=== PATIENT | female | born 1990 | race Caucasian/White ===

== ENCOUNTER 2019-04-17 13:18 | Emergency (ER) | payer MEDICAID, SELFPAY ==
[2019-04-17 13:28] VITALS: BP 145/85; PULSE 110; RESP 18; TEMP 36.9
--- NOTE | 2019-04-17 13:34 | ED.GENADUL_ITS ---
Discharge Plan Disposition Patient Disposition: HOME Condition: Good Discharge Details Chief Complaint: EarProblem Clinical Impression: Strep throat, Other otitis externa, right ear Primary Care Provider: Louis Nichols ED Provider: Bc Perez Home Meds and New Rx's Prescriptions: New Ciprodex 0.3-0.1 % drops,suspension 4 drp OT BID 7 Days Qty: 7.5 RF: 0 azithromycin 500 mg tablet 500 mg PO DAILY 5 Days Qty: 5 RF: 0 No Action albuterol sulfate 90 mcg/actuation Hfa Aerosol Inhaler 2 puff INHALATION Q6H PRNRF: 0 Discharge Instructions Instructions: Otitis Externa (ED), Upper Respiratory Infection (ED) Additional Instructions: You have clinical strep throat as well as otitis externa which is an infection of the ear canal. Please take medication as directed. You can also take 1000 mg of Tylenol every 6 hours and 800 mg of ibuprofen every 6 hours as needed for pain or fever. If you notice any worsening of your symptoms, or any new symptoms such as vomiting, diarrhea, fever, chills, shortness of breath, chest pain, numbness, weakness, or fainting , please return immediately to the emergency department for reevaluation. Please follow up with your primary care provider as soon as possible for reassessment and reevaluation. As always, it was a pleasure participating in your medical care today. Stand Alone Forms: Work Release Referrals: Louis Nichols [Primary Care Provider] - Discharge Data Discharge Date/Time-TO BE ENTERED AT DEPARTURE: 04/17/19 13:45 Medical Decision Making This is a 28-year-old female who presents with sore throat and right ear pain. Physical exam demonstrates notable tonsillar exudates, no splenic tenderness or enlargement, signs and symptoms and consistent with mono. Notable concern for strep throat especially with her tender cervical lymphadenopathy. Additionally her right ear demonstrates otitis externa. She does get her ears wet in the shower, and this may be the cause. No evidence of otitis media. Signs and symptoms are concerning with the tonsillar exudates. We will give antibiotic here for strep throat, she is allergic to penicillins and amoxicillin, and so we will give azithromycin, 500 mg daily for 5 days. We will give a prescription for Cipro for her otitis externa. I have extensively reviewed the treatment plan and discharge instructions with the patient. I have addressed all patient concerns at this time. The patient was made aware of what symptoms to monitor for that would warrant a return to the emergency department. Discussed the plan with the patient, they demonstrate verbal understanding and agreement with our assessment and plan at this time. HPI General Date/Time Provider Initiated Documentation: 04/17/19 13:26 . HPI Narrative: This is a 28-year-old female with no past medical history who presents today with complaint of sore throat and right ear pain. Symptoms have been pres ent for the last 24 to 48 hours. She denies fever, chills, or posterior neck pain or headache. She does admit to mild anterior neck pain. She denies cough, shortness of breath, vomiting, diarrhea, IV or illicit drug use, or other sick contacts. She does currently work at [employer]. No other complaints at this time. No other modifying factors. Related Data Home Medications Medication Instructions Recorded Confirmed albuterol sulfate 2 puff INHALATION Q6H PRN 04/17/19 04/17/19 azithromycin 500 mg PO DAILY 5 Days #5 tab 04/17/19 ciprofloxacin-dexamethasone 4 drp OT BID 7 Days #7.5 ml 04/17/19 [Ciprodex] Previous Rx's Medication Instructions Recorded azithromycin 500 mg PO DAILY 5 Days #5 tab 04/17/19 ciprofloxacin-dexamethasone 4 drp OT BID 7 Days #7.5 ml 04/17/19 [Ciprodex] Allergies Allergy/AdvReac Type Severity Reaction Status Date / Time acetaminophen [From Percocet] Allergy Mild Hives Unverified 04/17/19 13:34 amoxicillin Allergy Mild Hives Unverified 04/17/19 13:34 oxycodone [From Percocet] Allergy Mild Hives Unverified 04/17/19 13:34 Penicillins Allergy Mild Hives Unverified 04/17/19 13:34 General Stated Complaint: EarProblem ARI: 5 Review of Systems Review of Systems All systems reviewed & are unremarkable except as noted in HPI and below PFSH Social History Alcohol Intake: never Substance use type: does not use Do you feel safe at home: Yes Do you feel safe in your relationship?: Yes Exam Narrative Exam Narrative: 1.Const: Well-nourished, Well-developed, appearing stated age 2.Eyes: PERRL, no conjunctival injection, and symmetrical lids. 3.ENT: Enlarged tonsils bilaterally, tonsillar exudates noted. Tender cervical lymphadenopathy. No evidence of a retropharyngeal or peritonsillar abscess. Patient demonstrates good movement of cervical neck. There is no nuchal rigidity, no nuchal tenderness. Patient is able to flex the neck without any difficulty or significant pain. Negative Kernig's and Brudzinski sign. The patient's left ear is normal, right ear demonstrates mild otitis externa. No evidence of otitis media. 4.CVS: +S1/S2, No murmurs or gallops. Peripheral pulses 2+ and equal in all extremities. Brisk capillary refill in all extremities. 5.RESP: Unlabored respiratory effort. Clear to auscultation bilaterally. No wheezes rales or rhonchi 6.GI: Soft, Nontender/Nondistended, No hepatosplenomegaly. No guarding or rebound. 7.MSK: Normocephalic/Atraumatic, Extremities w/o deformity or ttp No cyanosis or clubbing, Normal movement of all extremities 8.Skin: Warm, Dry. No rashes or lesions. 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 Sensation grossly intact, no focal neurologic deficits. 10.Psych: (AAO) x3. Appropriate mood and affect Course Vital Signs Temperature 36.9 C 04/17/19 13:28 Pulse 110 H 04/17/19 13:28 Respiratory Rate 18 04/17/19 13:28 Blood Pressure 145/85 H 04/17/19 13:28 Temperature 36.9 C 04/17/19 13:28 Temperature Source Skin 04/17/19 13:28 Pulse 110 H 04/17/19 13:28 Respiratory Rate 18 04/17/19 13:28 Blood Pressure 145/85 H 04/17/19 13:28 Pain Level 7 04/17/19 13:28
== END 2019-04-17 13:45 | disposition home or self-care (01) ==
LOC: ER 13:47
PROVIDERS: Emergency Provider Student in an Organized Health Care Education/Training Program; PCP Nurse Practitioner Family
DX: J02.0 Streptococcal pharyngitis (principal); H66.91 Otitis media, unspecified, right ear
CPT/HCPCS: 99283

== ENCOUNTER 2020-09-02 19:24 | Emergency (ER) | payer MEDICAID, SELFPAY ==
--- NOTE | 2020-09-02 19:25 | W.ED.GENAD ---
Discharge Plan Disposition Patient Disposition: HOME Condition: Good Discharge Details Clinical Impression: Acute ear pain Primary Care Provider: Louis Nichols ED Provider: Edwina Negron Home Meds and New Rx's Prescriptions: Continued albuterol sulfate 90 mcg/actuation Hfa Aerosol Inhaler 2 puff INHALATION Q6H PRNRF: 0 Discharge Instructions Instructions: Earache (ED) Additional Instructions: Your exam today is reassuring, I do not see any evidence of acute bacterial ear infection. Encourage water intake. Tylenol and ibuprofen as needed for discomfort. Please follow-up with primary care at the end of the week if pain is not improving. If he develop fever/chills, increased pain, discharge or other new/worsening symptoms please seek care urgently once again. Referrals: Louis Nichols [Primary Care Provider] - Discharge Data Discharge Date/Time-TO BE ENTERED AT DEPARTURE: 09/02/20 19:55 Medical Decision Making Patient presents with left ear pain x 1 day. She reports she has had otitis media as an adult and that it feels similar. Denies other symptoms. No drainage. No radiation. No ZAMARRIPA. Paitent appears nontoxic. No abnormalities noted on exam of the left ear. No pain over mastoid, no lymphadenopathy. Normal oral exam. Advised that at this time I see no acute bacterial infection. Encouraged water intake. Will give Tylenol and ibuprofen for discomfort. Advised f/u with PCP if syptoms are not improving over the next week. She was given return precautions. All questions and concerns were addressed, she is in agreement with this plan. HPI General Mode of arrival: ambulatory. Date/Time Provider Initiated Documentation: 09/02/20 19:25. Limitations to Documentation: no limitations. Information obtained by: patient and RN notes reviewed. History of Present Illness 30 year old F presents to the emergency department with the chief complaint of left ear pain, described as moderate, with intensity rated at 7. Quality is described as other (throbbing), and is localized to the face (ear). Patient reports no radiation. Patient started experiencing this hour(s) and it has been constant. No relieving factors improve symptom(s), No exacerbating factors reported . Patient notes no other symptoms.. Patient did receive the following treatments prior to arrival, none Related Data Home Medications Medication Instructions Recorded Confirmed albuterol sulfate 2 puff INHALATION Q6H PRN 04/17/19 09/02/20 Allergies Allergy/AdvReac Type Severity Reaction Status Date / Time acetaminophen [From Percocet] Allergy Mild Hives Unverified 09/02/20 19:41 amoxicillin Allergy Mild Hives Unverified 09/02/20 19:33 cat dander Allergy Mild Other (See Unverified 09/02/20 19:33 Comment) oxycodone [From Percocet] Allergy Mild Hives Unverified 09/02/20 19:41 Penicillins Allergy Mild Hives Unverified 09/02/20 19:33 General ARI: 5 Review of Systems Constitutional Constitutional: Reports as per HPI, Denies chills, Denies fever(s) and Denies headache(s) Eyes Eyes: Reports as per HPI, Denies eye discharge and Denies irritation ENT Ears, Nose, Mouth, and Throat: Reports as per HPI and Denies headache(s) Cardiovascular Cardiovascular: Reports as per HPI, Denies chest pain and Denies dyspnea Respiratory Respiratory: Reports as per HPI and Denies dyspnea Gastrointestinal Gastrointestinal: Reports as per HPI, Denies abdominal pain, Denies change in bowel habits, Denies nausea and Denies vomiting Integumentary/Breasts Skin/Breast: Reports as per HPI and Denies rash Neurologic Neurologic: Reports as per HPI and Denies headache(s) [facility] Social History Smoking/Tobacco Use Status: Current every day Alcohol Intake: never Substance use type: does not use Do you feel safe at home: Yes Do you feel safe in your relationship?: Yes Exam Const General: cooperative, healthy appearing, comfortable, no acute distress, well developed and well groomed Nutritional Appearance: well nourished and obese Orientation: alert and awake [facility] Head: normal to inspection, normocephalic and atraumatic Ears: hearing grossly normal bilaterally, external ears normal and TM's normal bilaterally General nose exam: external nose normal and nares normal Face and sinus: normal facial exam, sinuses nontender and face symmetric Mouth: oral mucosae normal, lip normal, tongue normal, oropharynx normal and moist mucous membranes Teeth and gingiva: dentition normal Throat: posterior oropharynx normal, tonsils normal and uvula midline Eyes General: appearance normal, both eyes and all related structures Neck Neck: normal visual inspection, full ROM, no lymphadenopathy and no meningeal signs Resp Effort & Inspection: normal respiratory effort, able to speak in complete sentences and no respiratory distress Auscultation: clear to auscultation bilaterally, no rales, no rhonchi and no wheezes Cardio Rate: regular rate Rhythm: regular rhythm Heart Sounds: S1 normal and S2 normal Skin General skin exam: no rashes or lesions noted Neuro General: patient alert and patient awake Cognition: normal cognition Speech: speech normal Gait: normal gait Psych Appearance: grossly normal and well kempt Mental Status: mental status grossly normal Speech and Movement: speech and movement normal
[2020-09-02 19:29] VITALS: BP 142/99; PULSE 100; RESP 16; TEMP 36.5; O2SAT 97
[2020-09-02] MEDS: Acetaminophen 500 MG TAB 1000 MG PO (19:54)
[2020-09-02] MEDS: Ibuprofen 600 MG TAB PO (19:54)
== END 2020-09-02 19:55 | disposition home or self-care (01) ==
PROVIDERS: Emergency Provider Physician Assistant; PCP Nurse Practitioner Family
DX: H92.02 Otalgia, left ear (principal)
CPT/HCPCS: 99282; 99283

== ENCOUNTER 2023-04-21 20:59 | Emergency (ER) | payer MEDICAID, SELFPAY ==
[2023-04-21] VITALS (15 sets, daily range): BP systolic 86–124; BP diastolic 52–107; PULSE 115–240; RESP 10–22; TEMP 36.6; O2SAT 94–99
--- NOTE | 2023-04-21 21:00 | RT.EKG_ITS ---
APPROVED REPORT Exam: Resting ECG Reason for Exam: palpitations Patient Location: E HR:241 bpm ECG Measurements Heart Rate 241 AXIS MA 154 P 27 QRSd 71 QRS 50 QT 217 T -12 QTc 436 Conclusion Supraventricular tachycardia...V-rate>(220-age), QRSd<120 Ventricular premature complex...V complex w/ short R-R interval Repolarization abnormality, prob rate related...ST dep, T neg, tachycardia
[2023-04-21] MEDS: Normal Saline 1,000 ML 1000 ML IV (21:24)
[2023-04-21] MEDS: Adenosine 6 MG/2 ML VIAL IVP (21:25)
[2023-04-21 21:37] LABS: Abs Immature Grans 0.05 10^3/uL (0.0-0.06); Absolute Basophil Count 0.04 10^3/uL (0.0-0.2); Absolute Lymphocyte Count 3.09 10^3/uL (1.2-3.4); Absolute Neutrophil Count 8.93 10^3/uL (1.2-6.7); Basophils % 0.3; Eosinophils % 0.5; HCT 43.6 % (36.0-46.0); Immature Grans % 0.4; Lymphocytes % 23.9; MCH 27.1 pg (27.0-33.0); MCHC 32.1 % (32.0-36.0); MCV 84 fL (80-95); MPV 10.6 fL (8.0-11.0); Monocytes % 5.7; Neutrophils % 69.2; Platelet Count 389 10^3/uL (130-400); RBC 5.17 10^6/uL (3.93-5.22); RDW 13.4 % (11.7-14.6); RDW-SD 41.6 fL; WBC 12.91 10^3/uL (4.4-10.8)
[2023-04-21 21:38] LABS: Absolute Eosinophil Count 0.06 10^3/uL (0.0-0.7); Absolute Monocyte Count 0.74 10^3/uL (0.1-0.8)
--- NOTE | 2023-04-21 21:42 | ED.GENADUL_ITS ---
Discharge Plan Disposition Patient Disposition: Home Condition: Stable Discharge Details Clinical Impression: SVT (supraventricular tachycardia) Primary Care Provider: Louis Nichols ED Provider: Hong Willis Home Meds and New Rx's Prescriptions: New metoprolol succinate 25 mg tablet extended release 24 hr 25 mg PO DAILY Qty: 30 0RF Continued albuterol sulfate 90 mcg/actuation Hfa Aerosol Inhaler 2 puff INHALATION Q6H PRN Discharge Instructions Instructions: Supraventricular Tachycardia (ED) Additional Instructions: You were in SVT when you arrived and were given adenosine to break out of it follow up with your primary care provider within 1-2 weeks and discuss continuing metoprolol if you feel more ill, have chest pain, shortness of breath or feel your heart rate is elevated again return to the emergency department Medical Decision Making 32 yo female with no documented history of svt though states she will intermittently feel her heart racing, comes in with complaints of feeling her heart racing starting after an argument an hour ago. Denies any symptoms during the day, felt well all day. She denies fevers, chills and desnies chest pain or dyspnea, just feels her heart racing. She arrives in svt with rates of 240, bp is 113/71 on my initial exam not the triage bp of 53 systolic which is likely machine error as there were no interventions between the 113/71 and that first bp in triage. She is in no distress, speaking clearly, no dischernable murmurs, clear lungs, no leg swelling or calf tenderness. Vagal maneuvers not successful, will proceed with adenosine 6mg iv adenosine converter her to sinus, will continue to monitor. pt still in sinus, rate of 90 on my current exam and is asymptomatic, mag mildly low at 1.6 do not feel iv repletion required. She is stable for d/c, advised to f/u with pcp and will start on metoprolol, return precautions given Differential Diagnosis Differential Diagnosis: svt, electrolyte abnormality Medical Records Medical records reviewed: Yes I reviewed the patient's medical records. Lab Data Lab results reviewed: Yes I reviewed the patient's lab results. ECG Data Attestation: I personally reviewed and interpreted this ECG (s) as follows: Prior ECG tracings: not available for review Interpretation: 1st ekg svt, rate of 241, no stemi sinus tachycardia rate of 116, pr 170, no acute ischemic findings HPI General Mode of arrival: ambulatory . Date/Time Provider Initiated Documentation: 04/21/23 21:16 . Limitations to Documentation: no limitations . Information obtained by: patient . History of Present Illness 32 year old F presents to the emergency department with the chief complaint of palpitations, described as moderate, Patient started experiencing this hour(s) (1) and it has been constant. No relieving factors improve symptom(s), No exacerbating factors reported . Patient notes denies fever/chills and shortness of breath. Patient did receive the following treatments prior to arrival, none Related Data Home Medications Medication Instructions Recorded Confirmed albuterol sulfate 90 mcg/actuation 2 puff inhalation Q6H PRN 04/17/19 04/21/23 aerosol inhaler metoprolol succinate 25 mg 25 mg PO DAILY #30 tabs 04/21/23 tablet,extended release 24 hr Previous Rx's Medication Instructions Recorded metoprolol succinate 25 mg 25 mg PO DAILY #30 tabs 04/21/23 tablet,extended release 24 hr Allergies Allergy/AdvReac Type Severity Reaction Status Date / Time acetaminophen [From Percocet] Allergy Mild Hives Unverified 04/21/23 21:13 amoxicillin Allergy Mild Hives Unverified 04/21/23 21:13 cat dander Allergy Mild Other (See Unverified 04/21/23 21:13 Comment) oxycodone [From Percocet] Allergy Mild Hives Unverified 04/21/23 21:13 Penicillins Allergy Mild Hives Unverified 04/21/23 21:13 General Stated Complaint: Palpitatns ARI: 2 Review of Systems All systems reviewed & are unremarkable except as noted in HPI and below Constitutional Constitutional: Denies chills, Denies fever(s) and Denies weakness Cardiovascular Cardiovascular: Denies chest pain and Denies dyspnea Respiratory Respiratory: Denies cough and Denies dyspnea Gastrointestinal Gastrointestinal: Denies abdominal pain, Denies nausea and Denies vomiting Musculoskeletal Musculoskeletal: Denies joint swelling Neurologic Neurologic: Denies weakness PFSH All Active Problems (Updated 04/21/23 @ 22:38 by Hong Willis MD) SVT (supraventricular tachycardia) (Chronic) Social History Smoking/Tobacco Use Status: Current every day Tobacco Type: cigarettes Smoking risk assessment performed?: Yes Alcohol Intake: never Substance use type: does not use Do you feel safe at home: Yes Do you feel safe in your relationship?: Yes Exam Const General: no acute distress Orientation: alert HENMT Head: normal to inspection Ears: external ears normal General nose exam: external nose normal Mouth: moist mucous membranes Eyes General: appearance normal, both eyes and all related structures Neck Neck: normal visual inspection Resp Effort & Inspection: normal respiratory effort and able to speak in complete sentences Auscultation: clear to auscultation bilaterally Cardio Jugular venous pressure: no JVD Rate: regular rate and tachycardic Heart Sounds: no murmurs Skin General skin exam: no rashes or lesions noted Neuro General: patient alert and patient oriented x3 Extrem General: normal to inspection Psych Mental Status: mental status grossly normal Course Vital Signs Vital signs: Vital Signs Temperature 36.6 C 04/21/23 21:01 Pulse 240 H 04/21/23 21:01 Respiratory Rate 18 04/21/23 21:01 Blood Pressure 56/44 L 04/21/23 21:01 Pulse Oximetry 99 04/21/23 21:01 Temperature 36.6 C 04/21/23 21:01 Temperature Source Oral 04/21/23 21:01 Pulse 121 H 04/21/23 21:40 Respiratory Rate 18 04/21/23 21:01 Respiratory Effort Normal 04/21/23 21:13 Blood Pressure 56/44 L 04/21/23 21:01 Blood Pressure Position Sitting 04/21/23 21:01 Pulse Oximetry 99 04/21/23 21:01 Oxygen Delivery Method Room Air 04/21/23 21:01 Oxygen Flow Rate 0 04/21/23 21:01 Pain Level 2 04/21/23 21:14 Lab/Test Results Lab/Test Results: Laboratory Tests Range/Units 04/21/23 04/21/23 21:19 21:20 WBC (4.4-10.8) 10^3/uL 12.91 H RBC (3.93-5.22) 10^6/uL 5.17 Hgb (11.2-15.7) g/dL 14.0 Hct (36.0-46.0) % 43.6 MCV (80-95) fL 84 MCH (27.0-33.0) pg 27.1 MCHC (32.0-36.0) % 32.1 RDW (11.7-14.6) % 13.4 Plt Count (130-400) 10^3/uL 389 MPV (8.0-11.0) fL 10.6 Immature Gran % 0.4 Neutrophils % 69.2 Lymphocytes % 23.9 Monocytes % 5.7 Eosinophils % 0.5 Basophils % 0.3 Nucleated RBC % (0.0-0.3) % 0.0 Absolute Neutrophils (1.2-6.7) 10^3/uL 8.93 H Absolute Lymphocytes (1.2-3.4) 10^3/uL 3.09 Absolute Monocytes (0.1-0.8) 10^3/uL 0.74 Absolute Eosinophils (0.0-0.7) 10^3/uL 0.06 Absolute Basophils (0.0-0.2) 10^3/uL 0.04 Troponin I Cancelled Critical Care Time Critical Care Time Critical Care Time: Yes Total Critical Care Time: 45 (minutes) Attestation: time spent administering iv adenosine, frequent reassessments, hydrodynamic monitoring in a patient with potential to deteriorate at any time.
--- NOTE | 2023-04-21 22:00 | RT.EKG_ITS ---
APPROVED REPORT Exam: Resting ECG Reason for Exam: palpitations Patient Location: E HR:116 bpm ECG Measurements Heart Rate 116 AXIS NC 170 P 48 QRSd 83 QRS 49 QT 316 T -3 QTc 438 Conclusion Sinus tachycardia...rate> 99
[2023-04-21 22:02] LABS: ALT 38 U/L (14-59); AST 28 U/L (15-37); Albumin 3.6 g/dL (3.4-5.0); Alkaline Phosphatase 117 U/L (46-116); BUN 14 mg/dL (7-18); Bilirubin, Total 0.5 mg/dL (0.2-1.0); CREATININE 0.9 mg/dL (0.55-1.02); Calcium 9.4 mg/dL (8.5-10.1); Chloride 102 mmol/L (98-107); Glucose 209 mg/dL (74-106); Magnesium 1.6 mg/dL (1.8-2.4); Potassium 3.6 mmol/L (3.5-5.1); Sodium 138 mmol/L (136-145); TSH (W/Ref FT4) 1.73 uIU/mL (0.36-3.74); Total Protein 8.6 g/dL (6.4-8.2)
[2023-04-21] MEDS: Metoprolol CR 25 MG TABCR PO (22:44)
== END 2023-04-21 23:02 | disposition home or self-care (01) ==
PROVIDERS: Emergency Provider Emergency Medicine; PCP Nurse Practitioner Family
DX: I47.1 Supraventricular tachycardia (principal)
CPT/HCPCS: 80053; 93005; 96361; 96374; 99291; 83735; 84443; 84484; 85025; 93010; J0153

== ENCOUNTER 2023-12-03 11:15 | Outpatient (CLI) | payer MEDICAID, SELFPAY ==
--- NOTE | 2023-12-03 11:15 | RT.EKG_ITS ---
APPROVED REPORT Exam: Resting ECG Reason for Exam: baseline Patient Location: O HR:116 bpm ECG Measurements Heart Rate 116 AXIS MN 135 P -12 QRSd 88 QRS 69 QT 299 T -3 QTc 416 Conclusion Sinus tachycardia...rate> 99 Borderline T abnormalities, inferior leads...T flat/neg, II III aVF Baseline wander in lead(s) V1,V6 I have reviewed and interpreted ECG and agree with software generated interpretation.
== END 2023-12-03 11:16 | disposition home or self-care (01) ==
LOC: DI.CARD 11:15
PROVIDERS: PCP Nurse Practitioner Family; Visit Provider Internal Medicine Interventional Cardiology
DX: Z87.898 Personal history of other specified conditions (principal)
CPT/HCPCS: 93010

== ENCOUNTER 2023-12-29 15:24 | Emergency (ER) | payer MEDICAID, SELFPAY ==
[2023-12-29 15:38] VITALS: BP 127/51; PULSE 93; RESP 18; TEMP 36.3; O2SAT 97
[2023-12-29 16:00] VITALS: BP 127/51; PULSE 93; RESP 18; TEMP 36.3; O2SAT 97
[2023-12-29 16:05] LABS: Bilirubin Negative (Negative); Blood Moderate (Negative); Clarity Turbid (Clear); Glucose Negative (Negative); Ketones Negative (Negative); Leukocyte Esterase Large (Negative); Nitrite Negative (Negative); Specific Gravity >= 1.030 (1.005-1.025); Urobilinogen 0.2 mg/dL (Up to 0.2)
[2023-12-29 16:19] LABS: WBC >50 HPF (0-5)
[2023-12-29 16:20] LABS: C & S Indicated? Yes
--- NOTE | 2023-12-29 16:52 | W.ED.GENAD ---
HPI General Mode of arrival: ambulatory. Date/Time Provider Initiated Documentation: 12/29/23 16:06. Limitations to Documentation: no limitations. Information obtained by: patient, RN notes reviewed and old records reviewed. HPI Narrative: 33-year-old female presents to the ER with a chief complaint of dysuria x 1 week, increased frequency, denies any back pain, vomiting, fever or chills, she denies any vaginal bleeding or discharge. On urinalysis it does show that she has moderate blood, large leukocytes greater than 50 WBCs, culture is pending at this time. She denies being on antibiotics in last few months. She does have a past medical history of obesity, migraine, , cholecystectomy. She is allergic to penicillin amoxicillin and oxycodone. Related Data Home Medications Medication Instructions Recorded Confirmed albuterol sulfate 90 mcg/actuation 2 puff inhalation Q6H PRN 04/17/19 12/29/23 aerosol inhaler medroxyprogesterone 150 mg/mL 150 mg IM Q12W #1 mL 11/30/23 12/29/23 intramuscular syringe (Depo-Provera) metoprolol succinate 50 mg 50 mg PO DAILY 12/03/23 12/29/23 tablet,extended release 24 hr phenazopyridine 100 mg tablet 100 mg PO TID PRN 6 doses #6 tabs 12/29/23 (Pyridium) sulfamethoxazole 800 1 tab PO BID UTI 7 days #14 tabs 12/29/23 mg-trimethoprim 160 mg tablet (Bactrim DS) Previous Rx's Medication Instructions Recorded medroxyprogesterone 150 mg/mL 150 mg IM Q12W #1 mL 11/30/23 intramuscular syringe (Depo-Provera) phenazopyridine 100 mg tablet 100 mg PO TID PRN 6 doses #6 tabs 12/29/23 (Pyridium) sulfamethoxazole 800 1 tab PO BID UTI 7 days #14 tabs 12/29/23 mg-trimethoprim 160 mg tablet (Bactrim DS) Allergies Allergy/AdvReac Type Severity Reaction Status Date / Time acetaminophen [From Percocet] Allergy Mild Hives Unverified 12/29/23 16:00 amoxicillin Allergy Mild Hives Unverified 12/29/23 16:00 cat dander Allergy Mild Other (See Unverified 12/29/23 16:00 Comment) oxycodone [From Percocet] Allergy Mild Hives Unverified 12/29/23 16:00 Penicillins Allergy Mild Hives Unverified 12/29/23 16:00 General Stated Complaint: Urinary ARI: 4 Review of Systems All systems reviewed & are unremarkable except as noted in HPI and below Cardiovascular Cardiovascular: Denies chest pain and Denies dyspnea on exertion Respiratory Respiratory: Denies dyspnea on exertion Gastrointestinal Gastrointestinal: Denies diarrhea, Denies nausea and Denies vomiting Genitourinary Genitourinary: Reports as per HPI, Denies genital pruritis, Denies dysmenorrhea, Reports dysuria, Denies pelvic pain, Denies flank pain, Denies vaginal discharge and Denies vaginal pruritus Course Vital Signs Vital signs: Vital Signs Temperature 36.3 C L 12/29/23 15:38 Pulse 93 H 12/29/23 15:38 Respiratory Rate 18 12/29/23 15:38 Blood Pressure 127/51 L 12/29/23 15:38 Pulse Oximetry 97 12/29/23 15:38 Temperature 36.3 C L 12/29/23 16:00 Temperature Source Skin 12/29/23 16:00 Pulse 93 H 12/29/23 16:00 Respiratory Rate 18 12/29/23 16:00 Respiratory Effort Normal 12/29/23 15:57 Blood Pressure 127/51 L 12/29/23 16:00 Blood Pressure Position Sitting 12/29/23 16:00 Pulse Oximetry 97 12/29/23 16:00 Oxygen Delivery Method Room Air 12/29/23 16:00 Oxygen Flow Rate 0 12/29/23 16:00 Pain Level 2 12/29/23 16:00 Lab/Test Results Lab/Test Results: 12/29/23 15:44 Urine - Reflex from Ua Urine Culture - Pending Laboratory Tests Range/Units 12/29/23 15:44 Urine Color (Yellow) Yellow Urine Clarity (Clear) Turbid Urine pH (5-8) 6.0 Ur Specific [place] (1.005-1.025) >= 1.030 H Urine Protein (Negative) mg/dL 30 H Urine Ketones (Negative) mg/dL Negative Urine Blood (Negative) Moderate H Urine Nitrite (Negative) Negative Urine Bilirubin (Negative) Negative Urine Urobilinogen (Up to 0.2) mg/dL 0.2 Ur Leukocyte Esterase (Negative) Large H Urine RBC Not Applicable Urine WBC (0-5) HPF >50 H Ur Epithelial Cells Not Applicable Urine Crystals Not Applicable Urine Bacteria Not Applicable Urine Mucus Not Applicable Ur Culture Indicated? Yes Urine Glucose (Negative) mg/dL Negative POC- Test(urine) Negative Medical Decision Making 33-year-old female presents to the ER with a chief complaint of dysuria x 1 week, increased frequency, denies any back pain, vomiting, fever or chills, she denies any vaginal bleeding or discharge. On urinalysis it does show that she has moderate blood, large leukocytes greater than 50 WBCs, culture is pending at this time. She denies being on antibiotics in last few months. She does have a past medical history of obesity, migraine, , cholecystectomy. She is allergic to penicillin amoxicillin and oxycodone. Will go ahead and give Bactrim and Pyridium. Culture is pending at this time. This text was generated using [employer] system, please disregard any oddities of phrase or misspellings. Lab Data Lab results reviewed: Yes I reviewed the patient's lab results. Labs: 12/29/23 15:44 Urine - Reflex from Ua Urine Culture - Pending Laboratory Tests Range/Units 12/29/23 15:44 Urine Color (Yellow) Yellow Urine Clarity (Clear) Turbid Urine pH (5-8) 6.0 Ur Specific [place] (1.005-1.025) >= 1.030 H Urine Protein (Negative) mg/dL 30 H Urine Ketones (Negative) mg/dL Negative Urine Blood (Negative) Moderate H Urine Nitrite (Negative) Negative Urine Bilirubin (Negative) Negative Urine Urobilinogen (Up to 0.2) mg/dL 0.2 Ur Leukocyte Esterase (Negative) Large H Urine RBC Not Applicable Urine WBC (0-5) HPF >50 H Ur Epithelial Cells Not Applicable Urine Crystals Not Applicable Urine Bacteria Not Applicable Urine Mucus Not Applicable Ur Culture Indicated? Yes Urine Glucose (Negative) mg/dL Negative Quality:SDOH Health Related Social Needs: No Data to Display PFSH All Active Problems (Updated 12/29/23 @ 16:59 by Myla Olivares NP) UTI (urinary tract infection) (Acute) Elevated BP without diagnosis of hypertension (Acute) PSVT (paroxysmal supraventricular tachycardia) (Acute) Encounter for counseling regarding contraception (Acute) Asthma (Chronic) Medical History History of tachycardia delivery delivered Migraine Surgical History History of cholecystectomy Family History Other Diabetes Hypertension Thyroid disease Social History Smoking/Tobacco Use Status: Current every day Tobacco Type: cigarettes Smoking risk assessment performed?: Yes Alcohol Intake: current Alcohol Intake frequency: holidays/special occasions only Drug use: Never Substance use type: does not use Household members: children Sexually active: Yes Do you think of yourself as: straight/heterosexual Current gender identity: female What type of physical activity do you participate in: none Seatbelt use: always Helmet use: Yes Drive intox or ride w/intox corrugated fastener driver: No Do you feel safe at home: Yes Do you feel safe in your relationship?: Yes Female Reproductive History Menstrual Age of Menarche: 12 Duration of menses: 3-5 days control method: none History History 3 Para 2 Hx # Term Pregnancies Multiple births Hx # Pregnancies Ectopic pregnancies AB induced Hx Number of Living Children AB spontaneous 1 Past Pregnancies Del. Date GA/Weeks # Preg Succ Route Wgt Sex Labor Lgth Anesthesia Location [facility] 05/01/12 38 No Yes 2579.807 g Male [place] 06/24/15 No Yes 3798.836 g Male Delivery Date: 05/01/12 Last Updated by: Precious Sharp CNM dilated to 6 cms, febrile and done. Baby transferred to [facility] and treated x 1 week for infection Delivery Date: 06/24/15 Last Updated by: Precious Sharp CNM [facility] Have you Been Recently Intoxicated or Drunk Within the Last 30 days?: No Have you Ever Experienced Previous Episodes of Alcohol Withdrawal?: No Have you ever Experienced Withdrawal Seizures?: No Have you ever Experienced Delirium Tremens(DT)s?: No Have you ever undergone Alcohol Rehabilitation Treatment (i.e, inpt ot outpatient treatment programs)?: No Have you ever Experienced Blackouts?: No Have you ever Combined Alcohol with other Downers within the last 90 days?: No Have you ever Combined Alcohol with any other Substance of Abuse during the last 90 days?: No Result: 0 Discharge Plan Disposition Patient Disposition: Home Condition: Stable Discharge Details Clinical Impression: UTI (urinary tract infection) Primary Care Provider: Louis Nichols ED Provider: Myla Olivares Home Meds and New Rx's Prescriptions: New sulfamethoxazole-trimethoprim [Bactrim DS] 800-160 mg tablet 1 tab PO BID 7 Days Qty: 14 0RF Rx Instructions: Please take 1 tablet by mouth twice daily for the next 7 days. phenazopyridine [Pyridium] 100 mg tablet 100 mg PO TID PRNQty: 6 0RF No Action medroxyprogesterone [Depo-Provera] 150 mg/mL syringe 150 mg IM Q12W Qty: 1 1RF metoprolol succinate 50 mg tablet extended release 24 hr 50 mg PO DAILY albuterol sulfate 90 mcg/actuation Hfa Aerosol Inhaler 2 puff INHALATION Q6H PRN Discharge Instructions Instructions: Urinary Tract Infection in Women (ED) Additional Instructions: Please take the medications as directed. You were given the first dose here. Take it with yogurt or probiotic. The Pyridium will turn your urine bright orange. Please be careful in the sun on this antibiotic. You may need to use a backup method for control while taking the antibiotic. Follow up with primary care provider in 3-5 days. Return to ED sooner if any worsening or concerns. Increase oral fluids. Please take Tylenol or Ibuprofen with food every 4-6 hours as needed for pain and swelling. Referrals: Louis Nichols [Primary Care Provider] - 3 days Discharge Data Discharge Date/Time-TO BE ENTERED AT DEPARTURE: 12/29/23 17:08
[2023-12-29 17:07] VITALS: BP 129/86; PULSE 95; RESP 15; TEMP 35.7; O2SAT 96
[2023-12-29] MEDS: Phenazopyridine 100 MG TAB PO (17:07)
[2023-12-29] MEDS: Sulfameth/Trimeth DS TAB 1 TAB PO (17:07)
== END 2023-12-29 17:08 | disposition home or self-care (01) ==
PROVIDERS: Emergency Provider Registered Nurse Emergency; PCP Nurse Practitioner Family
DX: N39.0 Urinary tract infection, site not specified (principal); R35.0 Frequency of micturition; Z88.0 Allergy status to penicillin
CPT/HCPCS: 81025; 99283; 81003; 81015; 87086

== ENCOUNTER 2024-09-11 08:35 | Emergency (ER) | payer MEDICAID, SELFPAY ==
[2024-09-11 08:49] VITALS: BP 119/85; PULSE 102; RESP 20; TEMP 37.1; O2SAT 95
[2024-09-11 08:54] VITALS: BP 119/85; PULSE 102; RESP 20; TEMP 37.1; O2SAT 95
--- NOTE | 2024-09-11 09:27 | ED.GENADUL_ITS ---
Discharge Plan Disposition Patient Disposition: Home Condition: Stable Discharge Details Clinical Impression: Pharyngitis Primary Care Provider: Louis Nichols ED Provider: Mayur Church Home Meds and New Rx's Prescriptions: Continued medroxyprogesterone [Depo-Provera] 150 mg/mL syringe 150 mg IM Q12W Qty: 1 1RF metoprolol succinate 50 mg tablet extended release 24 hr 50 mg PO DAILY Qty: 90 3RF albuterol sulfate 90 mcg/actuation Hfa Aerosol Inhaler 2 puff INHALATION Q6H PRN Discontinued phenazopyridine [Pyridium] 100 mg tablet 100 mg PO TID PRNQty: 6 0RF Discharge Instructions Instructions: Sore Throat, Adult ED Additional Instructions: Rapid strep testing performed today was negative. A COVID test was performed and is pending at time of discharge. Please take ibuprofen over the counter. Take 600mg by mouth every 6 hours as ne eded for pain. Please contact your primary care physician to arrange follow-up. Return to the ER immediately for any worsening or new concerning symptoms. Referrals: Louis Nichols [Primary Care Provider] - Discharge Data Discharge Date/Time-TO BE ENTERED AT DEPARTURE: 09/11/24 10:18 HPI General Mode of arrival: ambulatory . Date/Time Provider Initiated Documentation: 09/11/24 09:27 . Limitations to Documentation: no limitations . Information obtained by: patient . HPI Narrative: 34-year-old female here with sore throat that started this morning. Sore throat is moderate. Hurts to swallow. No difficulty swallowing. No associated fever or cough. Related Data Home Medications ?Medication ?Instructions ?Recorded ?Confirmed albuterol sulfate 90 mcg/actuation 2 puff inhalation Q6H PRN 04/17/19 09/11/24 aerosol inhaler medroxyprogesterone 150 mg/mL 150 mg IM Q12W #1 mL 11/30/23 09/11/24 intramuscular syringe (Depo-Provera) metoprolol succinate 50 mg 50 mg PO DAILY #90 tabs 01/27/24 09/11/24 tablet,extended release 24 hr Previous Rx's ?Medication ?Instructions ?Recorded medroxyprogesterone 150 mg/mL 150 mg IM Q12W #1 mL 11/30/23 intramuscular syringe (Depo-Provera) metoprolol succinate 50 mg 50 mg PO DAILY #90 tabs 01/27/24 tablet,extended release 24 hr Allergies Allergy/AdvReac Type Severity Reaction Status Date / Time acetaminophen (From Percocet) Allergy Mild Hives Unverified 09/11/24 08:54 amoxicillin Allergy Mild Hives Unverified 09/11/24 08:54 cat dander Allergy Mild Other (See Unverified 09/11/24 08:54 Comment) oxycodone (From Percocet) Allergy Mild Hives Unverified 09/11/24 08:54 Penicillins Allergy Mild Hives Unverified 09/11/24 08:54 General Stated Complaint: Sorethroat ARI: 4 Review of Systems All systems reviewed & are unremarkable except as noted in HPI and below Constitutional Constitutional: Denies fever(s) ENT Ears, Nose, Mouth, and Throat: Reports as per HPI Integumentary/Breasts Skin/Breast: Denies rash Exam Const General: cooperative and no acute distress HENMT Mouth: oral mucosae normal and moist mucous membranes Throat: uvula midline and posterior oropharynx abnormal erythema; no cobblstoning and no exudates Other: No stridor, no trismus Eyes Conjunctivae: normal conjunctivae Sclera: normal sclerae EOM: EOM intact bilaterally Neck Neck: trachea midline and supple Resp Auscultation: clear to auscultation bilaterally, no rales, no rhonchi and no wheezes Cardio Rate: regular rate and not tachycardic Rhythm: regular rhythm GI Palpation: soft, not firm, no guarding, no masses, not rigid and nontender Skin General skin exam: no rashes or lesions noted Course Vital Signs Vital signs: Vital Signs Temperature 37.1 C 09/11/24 08:49 Pulse 102 H 09/11/24 08:49 Respiratory Rate 20 09/11/24 08:49 Blood Pressure 119/85 09/11/24 08:49 Pulse Oximetry 95 09/11/24 08:49 Temperature 37.1 C 09/11/24 08:54 Temperature Source Oral 09/11/24 08:54 Pulse 102 H 09/11/24 08:54 Respiratory Rate 20 09/11/24 08:54 Respiratory Effort Normal, Non-Labored 09/11/24 08:55 Blood Pressure 119/85 09/11/24 08:54 Blood Pressure Position Sitting 09/11/24 08:54 Pulse Oximetry 95 10/21/24 08:54 Oxygen Delivery Method Room Air 09/11/24 08:54 Oxygen Flow Rate 0 09/11/24 08:54 Lab/Test Results Lab/Test Results: 09/11/24 08:49 Tonsil - Not Specified Group A Streptococcus Culture - Pending POC Strep Test-CARLOS(Rapid) Start: 09/11/24 08:5 9 Freq: .Rapid Strep Test Status: Active Protocol: Document 09/11/24 09:00 EufemiaTRISTONTanya (Rec: 09/11/24 09:00 EufemiaTRISTONTanya [id number]) Strep test-CARLOS(Rapid)-POC POC-Strep test-CARLOS (Rapid) Negative POC-Strep test-CARLOS (Rapid) Negative Medical Decision Making 34-year-old female here with sore throat since this morning. Patient is hemodynamically stable, saturating well in no respiratory distress. Exam consistent with pharyngitis. Rapid strep testing negative. Suspect viral process. Decadron p.o. and ibuprofen administered. Recommended supportive care. Usual customary discharge instructions were reviewed with the patient. Quality:SDOH Health Related Social Needs: No Data to Display PFSH All Active Problems (Updated 09/11/24 @ 09:28 by Mayur Church MD) Pharyngitis (Acute) Elevated BP without diagnosis of hypertension (Acute) PSVT (paroxysmal supraventricular tachycardia) (Acute) Encounter for counseling regarding contraception (Acute) Asthma (Chronic) Medical History History of tachycardia delivery delivered Migraine Surgical History History of cholecystectomy Family History Other Diabetes Hypertension Thyroid disease Social History Smoking/Tobacco Use Status: Current every day Tobacco Type: cigarettes Smoking risk assessment performed?: Yes Alcohol Intake: current Alcohol Intake frequency: holidays/special occasions only Drug use: Never Substance use type: does not use Household members: children Sexually active: Yes Do you think of yourself as: straight/heterosexual Current gender identity: female What type of physical activity do you participate in: none Seatbelt use: always Helmet use: Yes Drive intox or ride w/intox commercial relief driver: No Do you feel safe at home: Yes Do you feel safe in your relationship?: Yes Female Reproductive History Menstrual Age of Menarche: 12 Duration of menses: 3-5 days control method: none History History 3 Para 2 Hx # Term Pregnancies Multiple births Hx # Pregnancies Ectopic pregnancies AB induced Hx Number of Living Children AB spontaneous 1 Past Pregnancies Del. Date GA/Weeks # Preg Succ Route Wgt Sex Labor Lgth Anesth esia Location Prov Complic 05/01/12 38 No Yes 2579.807 g Male [place] 06/24/15 No Yes 3798.836 g Male Delivery Date: 05/01/12 Last Updated by: Precious Sharp CNM dilated to 6 cms, febrile and done. Baby transferred to [facility] and treated x 1 week for infection Delivery Date: 06/24/15 Last Updated by: Precious Sharp CNM [place]
[2024-09-11] MEDS: Ibuprofen 600 MG TAB PO (10:06)
[2024-09-11] MEDS: Dexamethasone 10 MG/ML VIAL PO (10:06)
[2024-09-11 10:18] VITALS: BP 127/86; PULSE 93; RESP 18; O2SAT 92
[2024-09-11 10:56] LABS: COVID-19 PCR Negative (Negative); Influenza A PCR Negative (Negative); Influenza B PCR Negative (Negative); RSV PCR Negative (Negative)
[2024-09-11 11:01] LABS: Source Nasopharynx
== END 2024-09-11 10:18 | disposition home or self-care (01) ==
PROVIDERS: Emergency Provider Student in an Organized Health Care Education/Training Program; PCP Nurse Practitioner Family
DX: J02.9 Acute pharyngitis, unspecified (principal)
CPT/HCPCS: 87637; 87880; 99283; 87081; J1100

== ENCOUNTER 2024-10-27 12:57 | Emergency (ER) | payer MEDICAID, SELFPAY ==
[2024-10-27 13:11] VITALS: BP 116/86; PULSE 111; RESP 14; TEMP 36.5; O2SAT 95
[2024-10-27] MEDS: Metoclopramide 10 MG TAB PO (13:28)
[2024-10-27] MEDS: Ketorolac 10 MG TAB PO (13:28)
[2024-10-27 13:29] VITALS: BP 116/86; PULSE 111; RESP 14; RESP 16; TEMP 36.5; O2SAT 95
[2024-10-27] MEDS: predniSONE 20 MG TAB 60 MG PO (13:47)
[2024-10-27] MEDS: Inhaler, Assist Device 1 EACH MC (13:48)
[2024-10-27] MEDS: Albuterol HFA 8 GM 60 PUFF INH IH (13:48)
--- NOTE | 2024-10-27 14:02 | W.ED.GENAD ---
Discharge Plan Disposition Patient Disposition: Home Condition: Stable Discharge Details Clinical Impression: Pneumonia, Asthma, Cough Primary Care Provider: Louis Nichols ED Provider: Danelle Awan Home Meds and New Rx's Prescriptions: New azithromycin 250 mg tablet See Rx Instructions .ROUTE .COMPLEX Qty: 6 0RF Rx Instructions: For 250 mg dose pack: take 500 mg today (day 1), then 250 mg for 4 days (days 2-5) benzonatate 100 mg capsule 100 mg PO TID PRN (Reason: cough) Qty: 30 0RF prednisone 20 mg tablet 40 mg PO DAILY 4 Days Qty: 8 0RF No Action medroxyprogesterone [Depo-Provera] 150 mg/mL syringe 150 mg IM Q12W Qty: 1 1RF metoprolol succinate 50 mg tablet extended release 24 hr 50 mg PO DAILY Qty: 90 3RF albuterol sulfate 90 mcg/actuation Hfa Aerosol Inhaler 2 puff INHALATION Q6H PRN Discharge Instructions Instructions: Community-Acquired Pneumonia, Adult (DC) Additional Instructions: Your symptoms and chest x-ray are concerning for pneumonia You have been prescribed antibiotics, please start and take as directed Your flu and COVID testing are negative Given your history of asthma, you were provided with an albuterol inhaler. Please use this inhaler with the spacer and give yourself 2 puffs every 4-6 hours as needed for cough or shortness of breath You should also continue steroids. The first dose was given in the emergency department, the remainder was sent to the pharmacy, please start taking that tomorrow You are also prescribed medication to help with cough. Otherwise [id number] lozenges and honey can be helpful. HPI General Date/Time Provider Initiated Documentation: 10/27/24 13:20. Limitations to Documentation: no limitations. Information obtained by: patient. HPI Narrative: 34-year-old female with past medical history of asthma presents for evaluation of cough. She reports that her 2 children have been sick at home with a virus with pneumonia. She reports that her cough has been ongoing for about the last week. She is reporting that her cough is productive of thick green sputum. She reports body aches and subjective fevers. No shortness of breath, but has pain with a deep breath. Related Data Home Medications ?Medication ?Instructions ?Recorded ?Confirmed albuterol sulfate 90 mcg/actuation 2 puff inhalation Q6H PRN 04/17/19 10/27/24 aerosol inhaler medroxyprogesterone 150 mg/mL 150 mg IM Q12W #1 mL 11/30/23 10/27/24 intramuscular syringe (Depo-Provera) metoprolol succinate 50 mg 50 mg PO DAILY #90 tabs 01/27/24 10/27/24 tablet,extended release 24 hr azithromycin 250 mg tablet See Rx Instructions PO .COMPLEX #6 10/27/24 tabs benzonatate 100 mg capsule 100 mg PO TID PRN cough #30 caps 10/27/24 prednisone 20 mg tablet 40 mg (2 x 20 mg) PO DAILY 4 days 10/27/24 #8 tabs Previous Rx's ?Medication ?Instructions ?Recorded medroxyprogesterone 150 mg/mL 150 mg IM Q12W #1 mL 11/30/23 intramuscular syringe (Depo-Provera) metoprolol succinate 50 mg 50 mg PO DAILY #90 tabs 01/27/24 tablet,extended release 24 hr azithromycin 250 mg tablet See Rx Instructions PO .COMPLEX #6 10/27/24 tabs benzonatate 100 mg capsule 100 mg PO TID PRN cough #30 caps 10/27/24 prednisone 20 mg tablet 40 mg (2 x 20 mg) PO DAILY 4 days 10/27/24 #8 tabs Allergies Allergy/AdvReac Type Severity Reaction Status Date / Time acetaminophen (From Percocet) Allergy Mild Hives Unverified 10/27/24 13:13 amoxicillin Allergy Mild Hives Unverified 10/27/24 13:13 cat dander Allergy Mild Other (See Unverified 10/27/24 13:13 Comment) oxycodone (From Percocet) Allergy Mild Hives Unverified 10/27/24 13:13 Penicillins Allergy Mild Hives Unverified 10/27/24 13:13 General Stated Complaint: GenMedical ARI: 4 Exam Narrative Exam Narrative: Review of Systems: All systems reviewed & are unremarkable except as noted in HPI and below Well-developed, no acute distress Afebrile Unlabored respiratory effort, no tachypnea or hypoxia, there is abnormal breath sound from the right middle and upper area, there are also expiratory wheezes bilaterally Course Vital Signs Vital signs: Vital Signs Temperature 36.5 C 10/27/24 13:11 Pulse 111 H 12/06/24 13:11 Respiratory Rate 14 10/27/24 13:11 Blood Pressure 116/86 10/27/24 13:11 Pulse Oximetry 95 10/27/24 13:11 Temperature 36.5 C 10/27/24 13:29 Temperature Source Oral 10/27/24 13:29 Pulse 111 H 10/27/24 13:29 Respiratory Rate 16 10/27/24 13:29 Respiratory Effort Normal, Non-Labored, Short of Breath 10/27/24 13:29 Respiratory Depth Normal 10/27/24 13:29 Respiratory Pattern Normal 10/27/24 13:29 Blood Pressure 116/86 10/27/24 13:29 Blood Pressure Position Sitting 10/27/24 13:29 Pulse Oximetry 95 10/27/24 13:29 Oxygen Delivery Method Room Air 10/27/24 13:29 Oxygen Flow Rate 0 10/27/24 13:29 Pain Level 7 10/27/24 13:29 Medical Decision Making Emergent evaluation of cough. Symptoms concerning for pneumonia, asthma exacerbation, viral illness. COVID and flu testing were both negative. She does have abnormal breath sounds on examination though she has no signs of respiratory distress. Given her history of asthma and vaping. She was given albuterol and steroid course. Her chest x-ray was reviewed and independently interpreted: Right middle lobe infiltrate. Will start on antibiotic. A cough medicine was also sent to the pharmacy. Return precautions advised. Recommend follow-up with PCP. Quality:SDOH Health Related Social Needs: No Data to Display PFSH All Active Problems (Updated 10/27/24 @ 14:30 by Danelle Awan MD) Cough (Acute) Pneumonia (Acute) Elevated BP without diagnosis of hypertension (Acute) PSVT (paroxysmal supraventricular tachycardia) (Acute) Encounter for counseling regarding contraception (Acute) Asthma (Chronic) Medical History History of tachycardia delivery delivered Migraine Surgical History History of cholecystectomy Family History Other Diabetes Hypertension Thyroid disease Social History Smoking/Tobacco Use Status: Current every day Tobacco Type: smokeless tobacco Smoking risk assessment performed?: Yes Alcohol Intake: current Alcohol Intake frequency: holidays/special occasions only Drug use: Never Substance use type: does not use Household members: children Sexually active: Yes Do you think of yourself as: straight/heterosexual Current gender identity: female What type of physical activity do you participate in: none Seatbelt use: always Helmet use: Yes Drive intox or ride w/intox cattle driver: No Do you feel safe at home: Yes Do you feel safe in your relationship?: Yes Female Reproductive History Menstrual Age of Menarche: 12 Duration of menses: 3-5 days control method: none History History 3 Para 2 Hx # Term Pregnancies Multiple births Hx # Pregnancies Ectopic pregnancies AB induced Hx Number of Living Children AB spontaneous 1 Past Pregnancies Del. Date GA/Weeks # Preg Succ Route Wgt Sex Labor Lgth Anesthesia Location [facility] 05/01/12 38 No Yes 2579.807 g Male [place] 06/24/15 No Yes 3798.836 g Male Delivery Date: 05/01/12 Last Updated by: Precious Sharp CNM dilated to 6 cms, febrile and done. Baby transferred to [facility] and treated x 1 week for infection Delivery Date: 06/24/15 Last Updated by: Precious Sharp CNM [place]
--- NOTE | 2024-10-27 14:27 | DI.RAD_ITS ---
Exam(s) XR CHEST 2V PA LATERAL EXAM: XR CHEST 2V PA LATERAL CLINICAL HISTORY: cough TECHNIQUE: 2D digital imaging was performed of the chest. Two images were obtained. PA and lateral views were obtained. COMPARISON: CT ABD PELVIS WITH CONTRAST from 01/29/2010 FINDINGS: MEDIASTINUM: Normal. HEART: Normal. PULMONARY VASCULATURE: Normal. LUNGS: There is a right middle lobe infiltrate. The left lung is clear. PLEURAL SPACE: No pleural effusion or pneumothorax. BONE:Within normal limits for the patient's age. OTHER FINDINGS:Normal. IMPRESSION: Right middle lobe infiltrate suspicious for pneumonia. DATA REPOSITORY: RADIATION DOSE DELIVERED:
[2024-10-27 14:45] VITALS: BP 111/82; PULSE 109; RESP 18; TEMP 36.4; O2SAT 95
== END 2024-10-27 14:46 | disposition home or self-care (01) ==
PROVIDERS: Emergency Provider Emergency Medicine; PCP Nurse Practitioner Family
DX: J18.9 Pneumonia, unspecified organism (principal); J45.909 Unspecified asthma, uncomplicated; R05.9 Cough, unspecified
CPT/HCPCS: 87426; 99284; 71046; J7512

== ENCOUNTER 2025-04-19 13:43 | Outpatient (REF) | payer MEDICAID, SELFPAY ==
[2025-04-20 12:12] LABS: Chlamydia Result Negative (Negative); GC Result Negative (Negative)
== END 2025-04-19 13:44 | disposition home or self-care (01) ==
LOC: LBN 13:43
PROVIDERS: PCP Nurse Practitioner Family; Visit Provider Advanced Practice Midwife
DX: Z11.3 Encounter for screening for infections with a predominantly sexual mode of transmission (principal)
CPT/HCPCS: 87491; 87591

== ENCOUNTER 2025-08-01 09:31 | Emergency (ER) | payer MEDICAID, SELFPAY ==
[2025-08-01 09:42] VITALS: BP 132/87; PULSE 104; RESP 18; TEMP 36.3; O2SAT 95
--- NOTE | 2025-08-01 10:09 | W.ED.GENAD ---
Discharge Plan Disposition Patient Disposition: Home Condition: Stable Discharge Details Clinical Impression: Sinusitis Primary Care Provider: Louis Nichols ED Provider: Bc Miranda Home Meds and New Rx's Prescriptions: New doxycycline hyclate 100 mg capsule 100 mg PO BID 7 Days Qty: 14 0RF Continued medroxyprogesterone [Depo-Provera] 150 mg/mL syringe 150 mg IM [id number] Qty: 1 4RF Patient Comments: states she is out of compliance and has not been back to get it . metoprolol succinate 50 mg tablet extended release 24 hr 50 mg PO DAILY Qty: 90 3RF albuterol sulfate 90 mcg/actuation Hfa Aerosol Inhaler 2 puff INHALATION Q6H PRN Discharge Instructions Instructions: Doxycycline, Sinusitis, Adult ED Additional Instructions: You were seen in the emergency department for your sinus infection for the past 2 weeks, have sent doxycycline to your pharmacy, please take an [id number] decongestant, return for any respiratory distress or other emergent concerns Referrals: Louis Nichols [Primary Care Provider] Discharge Data Discharge Date/Time-TO BE ENTERED AT DEPARTURE: 08/01/25 10:20 HPI General Date/Time Provider Initiated Documentation: 08/01/25 09:54. HPI Narrative: 35 year-old female presents to ED today by POV/ambulating with a chief complaint of possible sinus infection with onset for the past two weeks. Quality described as generalized sinus pressure, cough, post-nasal drip, yellow/green snot, and occasional headaches and sneezing, no radiation to shortness of breath, chest pain, fever, inability to swallow, neck stiffness, trismus, vocal changes. Severity is described as moderate. Palliating factors include nothing specific. Provoking factors include nothing specific. Patient not anticoagulated. Related Data Home Medications ?Medication ?Instructions ?Recorded ?Confirmed albuterol sulfate 90 mcg/actuation 2 puff inhalation Q6H PRN 04/17/19 08/01/25 aerosol inhaler metoprolol succinate 50 mg 50 mg PO DAILY #90 tabs 01/27/24 08/01/25 tablet,extended release 24 hr medroxyprogesterone 150 mg/mL 150 mg IM [id number] #1 mL 04/19/25 08/01/25 intramuscular syringe (Depo-Provera) doxycycline hyclate 100 mg capsule 100 mg PO BID 7 days #14 caps 08/01/25 Previous Rx's ?Medication ?Instructions ?Recorded metoprolol succinate 50 mg 50 mg PO DAILY #90 tabs 01/27/24 tablet,extended release 24 hr medroxyprogesterone 150 mg/mL 150 mg IM [id number] #1 mL 04/19/25 intramuscular syringe (Depo-Provera) doxycycline hyclate 100 mg capsule 100 mg PO BID 7 days #14 caps 08/01/25 Allergies Allergy/AdvReac Type Severity Reaction Status Date / Time acetaminophen (From Percocet) Allergy Mild Hives Unverified 08/01/25 09:46 amoxicillin Allergy Mild Hives Unverified 08/01/25 09:46 cat dander Allergy Mild Other (See Unverified 08/01/25 09:46 Comment) oxycodone (From Percocet) Allergy Mild Hives Unverified 08/01/25 09:46 Penicillins Allergy Mild Hives Unverified 08/01/25 09:46 General Stated Complaint: RespSymp ARI: 4 Review of Systems All systems reviewed & are unremarkable except as noted in HPI and below Exam Narrative Exam Narrative: GENERAL APPEARANCE: Well-nourished, non-toxic, awake and alert, atraumatic, no acute distress. SKIN: Warm, pink, dry, intact, without rashes/lesions/ulcerations. HEAD: Normocephalic, atraumatic, normal hair distribution for gender/age. EYES: Normal conjunctiva, no exudates on lids/lashes. ENT: Nares patent, no circumoral cyanosis, no facial swelling, maxillary and ethmoid sinusitis NECK: Supple, trachea midline, painless cervical ROM. LUNGS/CHEST: Non-labored respirations, normal A/P diameter, symmetrical expansion, no chest wall deformity HEART (CV/PV): No peripheral edema, no JVD. ABDOMEN: Soft, non-distended, no guarding. MSK: Normal ROM, no swelling/deformity to bilateral UEs or LEs, moving all extremities without weakness, no cyanosis, spine midline without tenderness, normal curvature. NEURO: Mental Status AAOx4 - alert to person, place, time, events No facial droop, no forehead involvement. Motor: No focal weakness - strength 5/5 in bilateral UEs and LEs, proximal and distal, symmetric. Sensory: sensation intact to light touch globally. Gait normal: patient ambulated without ataxia into ED room. PSYCH: euthymic, cooperative, pleasant, appropriate speech Course Vital Signs Vital signs: Vital Signs Temperature 36.3 C L 08/01/25 09:42 Pulse 104 H 08/01/25 09:42 Respiratory Rate 18 08/01/25 09:42 Blood Pressure 132/87 08/01/25 09:42 Pulse Oximetry 95 08/01/25 09:42 Temperature 36.3 C L 08/01/25 09:42 Temperature Source Temporal Artery Scan 08/01/25 09:42 Pulse 104 H 08/01/25 09:42 Respiratory Rate 18 08/01/25 09:42 Blood Pressure 132/87 08/01/25 09:42 Pulse Oximetry 95 08/01/25 09:42 Pain Level 0 08/01/25 09:42 Medical Decision Making This dictation utilizes [id number] dictation software and may contain unedited grammatical errors. 35 year-old female presents to ED today by POV/ambulating with a chief complaint of possible sinus infection with onset for the past two weeks. Quality described as generalized sinus pressure, cough, post-nasal drip, yellow/green snot, and occasional headaches and sneezing, no radiation to shortness of breath, chest pain, fever, inability to swallow, neck stiffness, trismus, vocal changes. Severity is described as moderate. Palliating factors include nothing specific. Provoking factors include nothing specific. Patients' medical history: Asthma, PSVT. Family and social history: Noncontributory. Pertinent exam findings / vital signs include maxillary and ethmoid sinus pressure, benign posterior oropharynx, benign cardiopulmonary status, nontoxic and afebrile. Differential / pathologies of concern include sinusitis, URI. Diagnostic studies of: - None. Interventions of: - Rx for Augmentin. ED Course/Assessment/Plan: 35-year-old female presents with 2 weeks of sinus infection having worsening yellow-green snot and sputum, postnasal drip, headaches, reasonable to treat with Augmentin for sinusitis, strict return criteria for any signs of severe worsening infection like trismus or vocal changes, inability to swallow or respiratory distress. Findings not consistent with deep space infection. Disposition of sinusitis. Patient verbalized understanding of the plan and return to ED criteria and engaged in shared decision making. Medical Records Medical records reviewed: Yes I reviewed the patient's medical records. PFSH All Active Problems (Updated 08/01/25 @ 10:11 by ILSA Da Silva) Sinusitis (Acute) Encounter for screening examination for sexually transmitted disease (Acute) Elevated BP without diagnosis of hypertension (Acute) PSVT (paroxysmal supraventricular tachycardia) (Acute) Encounter for counseling regarding contraception (Acute) Asthma (Chronic) Medical History History of tachycardia delivery delivered Migraine Surgical History History of cholecystectomy Family History Other Diabetes Hypertension Thyroid disease Social History Smoking/Tobacco Use Status: Current every day Tobacco Type: e-cigarettes and smokeless tobacco Smoking risk assessment performed?: Yes Alcohol Intake: current Alcohol Intake frequency: holidays/special occasions only Drug use: Never Substance use type: does not use Household members: children Sexually active: Yes Do you think of yourself as: straight/heterosexual Current gender identity: female What type of physical activity do you participate in: none Seatbelt use: always Helmet use: Yes Drive intox or ride w/intox 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 Date GA/Weeks # Preg Succ Route Wgt Sex Labor Lgth Anesthesia Location [facility] 05/01/12 38 No Yes 2579.807 g Male [place] 06/24/15 No Yes 3798.836 g Male Delivery Date: 05/01/12 Last Updated by: Precious Sharp CNM dilated to 6 cms, febrile and done. Baby transferred to [facility] and treated x 1 week for infection Delivery Date: 06/24/15 Last Updated by: Precious Sharp CNM [place]
== END 2025-08-01 10:20 | disposition home or self-care (01) ==
PROVIDERS: Emergency Provider Physician Assistant; PCP Nurse Practitioner Family
DX: J32.9 Chronic sinusitis, unspecified (principal)
CPT/HCPCS: 99283 ×2

== ENCOUNTER 2025-09-08 10:13 | Emergency (ER) | payer MEDICAID, SELFPAY ==
[2025-09-08 10:15] VITALS: BP 135/85; PULSE 112; RESP 14; TEMP 36.4; O2SAT 95
--- NOTE | 2025-09-08 10:15 | DI.RAD_ITS ---
Exam(s) XR ANKLE LT COMPLETE EXAM: XR ANKLE LT COMPLETE CLINICAL HISTORY: L lateral ankle pain after twisting, able to WB TECHNIQUE: 2D digital imaging was performed. Three views. COMPARISON: No exams were available for comparison FINDINGS: BONES: No acute fracture is present. No bony destructive lesion is seen. Calcaneal enthesophytes. JOINTS:The ankle mortise is normally aligned. SOFT TISSUE: Swelling around the ankle. IMPRESSION: Soft tissue swelling. The preliminary [facility] report was reviewed. DATA REPOSITORY: RADIATION DOSE DELIVERED:
--- NOTE | 2025-09-08 10:30 | W.ED.GENAD ---
Discharge Plan Disposition Patient Disposition: Home Condition: Good Discharge Details Clinical Impression: Left ankle sprain Primary Care Provider: Louis Nichols ED Provider: Meenakshi Cee Home Meds and New Rx's Prescriptions: No Action medroxyprogesterone [Depo-Provera] 150 mg/mL syringe 150 mg IM [id number] Qty: 1 4RF Patient Comments: states she is out of compliance and has not been back to get it . metoprolol succinate 50 mg tablet extended release 24 hr 50 mg PO DAILY Qty: 90 3RF albuterol sulfate 90 mcg/actuation Hfa Aerosol Inhaler 2 puff INHALATION Q6H PRN Discharge Instructions Instructions: Ankle Sprain ED Additional Instructions: Please call your primary care provider first thing Wednesday to schedule a follow-up appointment within the next week or two for reassessment. If pain persists, a referral to PT may be indicated. There is no sign of fracture on your x-ray. I recommend that you use the lace up stabilizer splint provided or an Carlos bandage for stabilization. Wear well supportive shoes. Elevate your ankle above heart level to help with swelling and pain. You may use ibuprofen 600 mg every 8 hours as needed for discomfort. Apply ice every hour for 15 to 20 minutes. Return to emergency care if you develop severe ankle pain, color change to your foot, coldness to your foot, or if you are very worried and need to be rechecked again immediately Stand Alone Forms: Work Release HPI General Date/Time Provider Initiated Documentation: 09/08/25 10:15. HPI Narrative: Cielo is a 35-year-old female who presents to the emergency department today for evaluation of left ankle pain. Twisted left ankle at home last night and again this morning after tripping on a step. Experiences tingling and tightening sensation in foot when wearing shoes. Pain localized to outer and bottom parts of foot, worsens with weight-bearing. No analgesics taken. Not , no hysterectomy. Requires doctor's note for employer. No history of fractures or ankle issues. Has not taken any medication prior to arrival for pain. PMH: Takes medication for hypertension and tachycardia. No history of kidney, liver, or GI issues. No alcohol consumption for many years. Related Data Home Medications ?Medication ?Instructions ?Recorded ?Confirmed albuterol sulfate 90 mcg/actuation 2 puff inhalation Q6H PRN 04/17/19 09/08/25 aerosol inhaler metoprolol succinate 50 mg 50 mg PO DAILY #90 tabs 01/27/24 09/08/25 tablet,extended release 24 hr medroxyprogesterone 150 mg/mL 150 mg IM [id number] #1 mL 04/19/25 09/08/25 intramuscular syringe (Depo-Provera) Previous Rx's ?Medication ?Instructions ?Recorded metoprolol succinate 50 mg 50 mg PO DAILY #90 tabs 01/27/24 tablet,extended release 24 hr medroxyprogesterone 150 mg/mL 150 mg IM [id number] #1 mL 04/19/25 intramuscular syringe (Depo-Provera) Allergies Allergy/AdvReac Type Severity Reaction Status Date / Time acetaminophen (From Percocet) Allergy Mild Hives Verified 09/08/25 10:17 amoxicillin Allergy Mild Hives Verified 09/08/25 10:17 cat dander Allergy Mild Other (See Verified 09/08/25 10:17 Comment) oxycodone (From Percocet) Allergy Mild Hives Verified 09/08/25 10:17 Penicillins Allergy Mild Hives Verified 09/08/25 10:17 General Stated Complaint: Orthopedic ARI: 4 Exam Narrative Exam Narrative: General Appearance: Appears well, in no acute distress Vital signs: Within normal limits. Tachycardia noted, systemic baseline Back, Musculoskeletal: Tenderness to palpation of lateral ankle, full range of motion. Neurological: + CMS to toes Skin: No ecchymosis or abrasions/skin tears. Psychiatric: Normal. Course Vital Signs Vital signs: Vital Signs Temperature 36.4 C 09/08/25 10:15 Pulse 112 H 09/08/25 10:15 Respiratory Rate 14 09/08/25 10:15 Blood Pressure 135/85 09/08/25 10:15 Pulse Oximetry 95 09/08/25 10:15 Temperature 36.4 C 09/08/25 10:15 Temperature Source Oral 09/08/25 10:15 Pulse 112 H 09/08/25 10:15 Respiratory Rate 14 09/08/25 10:15 Blood Pressure 135/85 09/08/25 10:15 Blood Pressure Position Sitting 09/08/25 10:15 Pulse Oximetry 95 09/08/25 10:15 Oxygen Delivery Method Room Air 10/18/25 10:15 Oxygen Flow Rate 0 09/08/25 10:15 Medical Decision Making Initial Assessment: 35-year-old female with twisted left ankle, foot tingling, lateral ankle tenderness, full range of motion, no ecchymosis or skin tears. Differential Diagnosis: - Left ankle sprain: Lateral ankle tenderness, full range of motion, no ecchymosis or skin tears. Plan: Ibuprofen, elevation, ice, x-ray to rule out fractures. - Avulsion fracture: Suspected based on mechanism of injury. Plan: X-ray to confirm. - No red flags concerning for neurovascular, dislocation, or septic joint requiring advanced DI or bloodwork at this time ED Course: - Ibuprofen administered - Ankle elevated, ice applied - X-ray obtained Independently interpreted the following tests: Left ankle x-ray, no obvious fracture noted. This was confirmed by radiologist Final Assessment: Ibuprofen administered, ankle elevated, ice applied, x-ray obtained to rule out fractures. Clinical Impression: - Left ankle sprain Reviewed discharge instructions with patient, including use of ankle stabilizer splint, symptomatic management, and importance of follow-up with PCP. Work note provided. Disposition: - Follow-Up: Call primary care doctor on Wednesday. Patient Education: Elevate ankle, apply ice, take ibuprofen, follow up with primary care doctor. Patient consented to the use of TATIA[facility] Imaging Data Radiologic Study: Radiologist's impression: PROCEDURE INFORMATION: Exam: XR Left Ankle Exam date and time: 09/08/2025 11:05 AM Age: 35 years old Clinical indication: Injury or trauma; Fall; Swelling (edema); Ankle; Left TECHNIQUE: Imaging protocol: Radiologic exam of the left ankle. Views: 3 or more views. COMPARISON: No relevant prior studies available. FINDINGS: Bones/joints: Normal. Soft tissues: Soft tissue swelling. IMPRESSION: No fracture. PFSH All Active Problems (Updated 09/08/25 @ 10:45 by Meenakshi Hargrove) Left ankle sprain (Acute) Encounter for screening examination for sexually transmitted disease (Acute) Elevated BP without diagnosis of hypertension (Acute) PSVT (paroxysmal supraventricular tachycardia) (Acute) Encounter for counseling regarding contraception (Acute) Asthma (Chronic) Medical History History of tachycardia delivery delivered Migraine Surgical History History of cholecystectomy Family History Other Diabetes Hypertension Thyroid disease Social History Smoking/Tobacco Use Status: Current every day Tobacco Type: e-cigarettes and smokeless tobacco Smoking risk assessment performed?: Yes Alcohol Intake: current Alcohol Intake frequency: holidays/special occasions only Drug use: Never Substance use type: does not use Household members: children Sexually active: Yes Do you think of yourself as: straight/heterosexual Current gender identity: female What type of physical activity do you participate in: none Seatbelt use: always Helmet use: Yes Drive intox or ride w/intox 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 Date GA/Weeks # Preg Succ Route Wgt Sex Labor Lgth Anesthesia Location [facility] 05/01/12 38 No Yes 2579.807 g Male [place] 06/24/15 No Yes 3798.836 g Male Delivery Date: 05/01/12 Last Updated by: Precious Sharp CNM dilated to 6 cms, febrile and done. Baby transferred to [facility] and treated x 1 week for infection Delivery Date: 06/24/15 Last Updated by: Precious Sharp CNM [place]
[2025-09-08] MEDS: Ibuprofen 800 MG TAB PO (10:39)
--- NOTE | 2025-09-08 12:32 | DI.[facility]_ITS ---
PROCEDURE INFORMATION: Exam: XR Left Ankle Exam date and time: 09/08/2025 11:05 AM Age: 35 years old Clinical indication: Injury or trauma; Fall; Swelling (edema); Ankle; Left TECHNIQUE: Imaging protocol: Radiologic exam of the left ankle. Views: 3 or more views. COMPARISON: No relevant prior studies available. FINDINGS: Bones/joints: Normal. Soft tissues: Soft tissue swelling. IMPRESSION: No fracture. Dictated and Authenticated by: Tor Avina MD. Orderin Adam Arrieta MD
[2025-09-08 12:52] VITALS: BP 140/68; PULSE 90; RESP 18; O2SAT 98
== END 2025-09-08 12:50 | disposition home or self-care (01) ==
PROVIDERS: Emergency Provider Nurse Practitioner Family; PCP Nurse Practitioner Family
DX: S93.402A Sprain of unspecified ligament of left ankle, initial encounter (principal); W19.XXXA Unspecified fall, initial encounter
CPT/HCPCS: 99283 ×2; 73610

== ENCOUNTER 2025-10-11 11:53 | Emergency (ER) | payer MEDICAID, SELFPAY ==
[2025-10-11 12:09] VITALS: BP 145/92; PULSE 101; RESP 16; TEMP 37; O2SAT 98
[2025-10-11] MEDS: Ketorolac 15 MG/ML VIAL IM (12:33)
[2025-10-11] MEDS: Prochlorperazine 10 MG/2 ML VIAL IM (12:34)
--- NOTE | 2025-10-11 15:42 | W.ED.GENAD ---
Discharge Plan Disposition Patient Disposition: Home Condition: Stable Discharge Details Clinical Impression: Concussion Primary Care Provider: Louis Nichols ED Provider: Sonja Delgado Home Meds and New Rx's Prescriptions: New prochlorperazine maleate [Compazine] 10 mg tablet 10 mg PO Q6H PRNQty: 10 0RF Continued medroxyprogesterone [Depo-Provera] 150 mg/mL syringe 150 mg IM [id number] Qty: 1 4RF Patient Comments: states she is out of compliance and has not been back to get it . metoprolol succinate 50 mg tablet extended release 24 hr 50 mg PO DAILY Qty: 90 3RF albuterol sulfate 90 mcg/actuation Hfa Aerosol Inhaler 2 puff INHALATION Q6H PRN Discharge Instructions Instructions: Concussion, Adult ED Additional Instructions: take motrin and tylenol as needed for pain compazine as needed for nausea and headache make sure you are drinking at least eight 8 ounce glasses of water daily She develop vomiting, worsening headache or should any new concerns arise please be reassessed in the ED Refer to the enclosed packet information regarding headache and concussion and follow recommendations Stand Alone Forms: Portal Information, Work Release Referrals: Louis Nichols [Primary Care Provider] HPI General Date/Time Provider Initiated Documentation: 10/11/25 12:15. HPI Narrative: This 35-year-old female presents after head injury. She fell approximately 1 foot from her bed onto a space heater. There was no loss of consciousness but she has had a headache since this morning when it happened. She denies any additional injuries. She has any vomiting. She does have a head ache and history of migraine headaches but this is different. She states not worsened but has not really improved despite taking some Tylenol prior to arrival. Denies any chance of . Denies any history of coagulopathy. Denies any vision change Related Data Home Medications Medication Instructions Recorded Confirmed albuterol sulfate 90 mcg/actuation 2 puff inhalation Q6H PRN 04/17/19 10/11/25 aerosol inhaler metoprolol succinate 50 mg 50 mg PO DAILY #90 tabs 01/27/24 10/11/25 tablet,extended release 24 hr medroxyprogesterone 150 mg/mL 150 mg IM [id number] #1 mL 04/19/25 10/11/25 intramuscular syringe (Depo-Provera) prochlorperazine maleate 10 mg 10 mg PO Q6H PRN #10 tabs 10/11/25 tablet (Compazine) Previous Rx's Medication Instructions Recorded metoprolol succinate 50 mg 50 mg PO DAILY #90 tabs 01/27/24 tablet,extended release 24 hr medroxyprogesterone 150 mg/mL 150 mg IM [id number] #1 mL 04/19/25 intramuscular syringe (Depo-Provera) prochlorperazine maleate 10 mg 10 mg PO Q6H PRN #10 tabs 10/11/25 tablet (Compazine) Allergies Allergy/AdvReac Type Severity Reaction Status Date / Time acetaminophen (From Percocet) Allergy Mild Hives Verified 10/11/25 12:12 amoxicillin Allergy Mild Hives Verified 10/11/25 12:12 cat dander Allergy Mild Other (See Verified 10/11/25 12:12 Comment) oxycodone (From Percocet) Allergy Mild Hives Verified 10/11/25 12:12 Penicillins Allergy Mild Hives Verified 10/11/25 12:12 General Stated Complaint: HeadInjury ARI: 4 Exam Narrative Exam Narrative: Alert and oriented 35-year-old female GCS 15 no cervical spine tenderness pupils equal round reactive to light and accommodation no hemotympanum no cervical spine tenderness, and if 60 tell intact ambulatory with steady gait small contusion noted to upper mid forehead, no crepitus approximately dime size Course Vital Signs Vital signs: Vital Signs Temperature 37.0 C 10/11/25 12:09 Pulse 101 H 10/11/25 12:09 Respiratory Rate 16 10/11/25 12:09 Blood Pressure 145/92 H 10/11/25 12:09 Pulse Oximetry 98 10/11/25 12:09 Temperature 37.0 C 10/11/25 12:09 Pulse 101 H 10/11/25 12:09 Respiratory Rate 16 10/11/25 12:09 Respiratory Effort Normal 10/11/25 12:43 Blood Pressure 145/92 H 10/11/25 12:09 Pulse Oximetry 98 10/11/25 12:09 Pain Level 7 10/11/25 12:09 Medical Decision Making Assessment and plan: Patient is afebrile and nontoxic, she is answering questions appropriately she has a nonfocal neurological assessment. I will give her Compazine and Toradol for pain. I have very low suspicion for intracranial pathology and suspect patient has a concussion. She feels improvement with Compazine and Toradol. she is given the threshold to return should she have new or worsening complaints. Discharged home in stable condition with stable vitals PFSH All Active Problems (Updated 10/11/25 @ 13:42 by ILSA Ernandez) Concussion (Acute) Encounter for screening examination for sexually transmitted disease (Acute) Elevated BP without diagnosis of hypertension (Acute) PSVT (paroxysmal supraventricular tachycardia) (Acute) Encounter for counseling regarding contraception (Acute) Asthma (Chronic) Medical History History of tachycardia delivery delivered Migraine Surgical History History of cholecystectomy Family History Other Diabetes Hypertension Thyroid disease Social History Smoking/Tobacco Use Status: Current every day Tobacco Type: e-cigarettes and smokeless tobacco Smoking risk assessment performed?: Yes Alcohol Intake: current Alcohol Intake frequency: holidays/special occasions only Drug use: Never Substance use type: does not use Household members: children Sexually active: Yes Do you think of yourself as: straight/heterosexual Current gender identity: female What type of physical activity do you participate in: none Seatbelt use: always Helmet use: Yes Drive intox or ride w/intox 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 Date GA/Weeks # Preg Succ Route Wgt Sex Labor Lgth Anesthesia Location Prov Complic 05/01/12 38 No Yes 2579.807 g Male [place] 06/24/15 No Yes 3798.836 g Male Delivery Date: 05/01/12 Last Updated by: Precious Mulkern, CNM dilated to 6 cms, febrile and done. Baby transferred to [facility] and treated x 1 week for infection Delivery Date: 06/24/15 Last Updated by: Precious Sharp CNM [place]
== END 2025-10-11 13:58 | disposition home or self-care (01) ==
PROVIDERS: Emergency Provider Physician Assistant; PCP Nurse Practitioner Family
DX: S06.0X0A Concussion without loss of consciousness, initial encounter (principal); R40.2412 Glasgow coma scale score 13-15, at arrival to emergency department; F17.290 Nicotine dependence, other tobacco product, uncomplicated; F17.210 Nicotine dependence, cigarettes, uncomplicated; W06.XXXA Fall from bed, initial encounter; Y93.89 Activity, other specified; Y92.013 Bedroom of single-family (private) house as the place of occurrence of the external cause
CPT/HCPCS: 96372; 99284; 99283; J0780; J1885